=== PATIENT | male | born 1945 | race Caucasian/White ===

== ENCOUNTER 2017-04-25 14:39 | Emergency (ER) | payer OTHER ==
[2017-04-25 14:45] VITALS: BMI 22.6
--- NOTE | 2017-04-25 15:19 | DR.GENAD ---
HPI - PCP Primary Care Physician: CAROLINE - HPI Comment HPI Comment: PAIN NOTED AT LUNCH TIME AND PROGRESSIVELY GETTING WORSE. DENIES PUD OR GB PROBLEMS. NO CHEST PAIN OR DIARRHEA. NO DYSURIA. - Complaint/Symptoms Chief Complaint Doctors Comments: RIGHT SIDED ABDOMINAL PAIN FOR SEVERAL HOURS WITH FEVER. Chief Complaint:: PT C/O RLQ PAIN THAT STARTED TODAY AT LUNCH. PT DENIES N/V/D. PT DENIES FEVER, BUT HE IS RUNNING A LOW GRADE FEVER - Nurses notes reviewed Nurses Notes Review: Yes - Source History Provided: Patient - Mode of Arrival Mode of Arrival: Ambulatory - Timing Onset of Chief Complaint: 04/25/17 Came on: Suddenly - Duration Duration: Constant Duration: Hours - Severity Severity: Moderate PMH - PMH Past Medical History: Yes Past Medical History: Anxiety, Hypertension, MS Past Surgical History: No Surgical History: Other - Family History History of Family Medical Conditions: Yes Family Medical History: Hypertension - Social History Does any household member use tobacco: No Alcohol Use: DAILY Do you use any recreational Drugs:: No Lives With: Family Lives Where: Home - infectious screening In the last 2 months have you had wt loss of >10#?: NO Have you had fever, night sweats or hemotysis?: No Have you traveled outside the country in the last 6 months?: No Isolation: Standard ROS - Review of Systems Constitutional: Weakness, Fatigue, Loss of Appetite. negative: Chills, Fever Eyes: negative: Eye Pain, Discharge ENTM: No Symptoms Reported. negative: Ear Pain, Nose Discharge, Nose Congestion , Throat Pain Respiratoy: No Symptoms Reported. negative: Productive Cough, Non-Productive Cough, Short of Breath, Wheezing, Hemoptysis Cardiovascular: No Symptoms Reported Gastrointestinal/Abdominal: Abdominal Pain Genitourinary: No Symptoms Reported Neurological: No Symptoms Reported Musculoskeletal: No Symptoms Reported Integumentary: No Symptoms Reported Hematologic/Lymphatic: No Symptoms Reported Endocrine: No Symptoms Reported All Other Systems: Reviewed and Negative PE - Vital Signs Vitals: Temperature 100.3 F Pulse Rate 100 Respiratory Rate 20 Blood Pressure [Right Arm] 148/80 Blood Pressure [Left Arm] 180/90 Blood Pressure 205/95 O2 Sat by Pulse Oximetry 96 - General Limitations: No Limitations General Appearance: Alert - Head Head Exam: Normal Inspection - Eyes Eye exam: Normal Appearance - ENT ENT Exam: Normal Oropharynx External Ear Exam: Normal External Inspection TM/Canal Exam: Bilateral Normal Nose Exam: Normal Nose Exam Mouth Exam: Normal Inspection Throat Exam: Normal Inspection - Neck Neck Exam: Normal Inspection - Chest Chest Inspection: Symmetric Chest Wall Rise - Respiratory Respiratory Exam: Normal Lung Sounds Bilat Respiratory Exam: Bilateral Rhonchi, Lower Rhonchi - Cardiovascular Cardiovascular Exam: Regular Rate, Normal Rhythm, Normal Heart Sounds - Abdominal Exam Abdominal Exam: Normal Bowel Sounds, Soft, Tenderness. negative: Guarding, Rebound Abdominal Tenderness: RUQ, RLQ, Moderate - Extremities Extremities Exam: Normal Inspection - Back Back Exam: Normal Inspection - Neurologic Neurological Exam: Alert, Oriented X3 - Psychiatric Psychiatric Exam: Normal Affect, Normal Mood - Skin Skin Exam: Normal Color MDM - Differential Diagnosis Differential Diagnosis: ACUTE PANCREATITIS, ABDOMINAL PAIN Course - Treatment Treatment: SEE ORDERS. - Consultation Consultation Comments: DISCUSS PATIENT WITH DR. MONTGOMERY. HE WILL ADMIT PATIENT. - Education/Counseling Education/Counseling: Patient, Education Educated On: Diagnosis, Needs for Follow Up ROR - Labs Reviewed Laboratory Results Reviewed?: Yes Result Diagrams: 04/28/17 05:10 04/28/17 05:10 - XRAY XRAY Interpreted by: Radiologist XRAY Findings: REPORT DISCUSS WITH PATIENT. - Diagnosis Discharge Problem: Abdominal pain, Acute cholecystitis - Discharge Plan Disposition: ADMITTED INPATIENT Condition: Stable - Follow ups/Referrals - Instructions
[2017-04-25 15:38] LABS: BILIRUBIN,URINE NEGATIVE (NEGATIVE); BLOOD/HEMOGLOBIN,URINE NEGATIVE (NEGATIVE); GLUCOSE, URINE NEGATIVE (NEGATIVE); KETONES,URINE NEGATIVE (NEGATIVE); LEUKOCYTE ESTERASE ,URINE 1+ (NEGATIVE); NITRITES,URINE NEGATIVE (NEGATIVE); PROTEIN,URINE 3+ (NEGATIVE); UROBILINOGEN,URINE NORMAL (NORMAL)
[2017-04-25 15:44] LABS: APPEARANCE,URINE CLEAR (CLEAR); BACTERIA,URINE NEGATIVE /HPF (NEGATIVE); COLOR,URINE YELLOW (YELLOW); RBC,URINE 0 /HPF (NEGATIVE); SQUAMOUS EPITHELIAL CELL,UR NEGATIVE /HPF (NEGATIVE)
[2017-04-25 15:52] LABS: BASOPHILS # (AUTO) 0.1 X10^3/uL (0.0-0.1); BASOPHILS % (AUTO) 0.5 % (0.2-1.0); EOSINOPHILS # (AUTO) 0.2 x10^3/uL (0.0-0.2); EOSINOPHILS % (AUTO) 1.7 % (0.9-2.9); HEMATOCRIT 43.7 % (42.0-54.0); HEMOGLOBIN 15.1 g/dL (13.5-18.0); LYMPHOCYTES # (AUTO) 0.7 X10^3/uL (1.3-2.9); LYMPHOCYTES % (AUTO) 6.3 % (21.0-51.0); MEAN CORPUSCULAR HEMOGLOBIN 32.1 pg (27.0-34.0); MEAN CORPUSCULAR HGB CONC 34.5 g/dL (33.0-35.0); MEAN CORPUSCULAR VOLUME 93.1 fL (80.0-100.0); MEAN PLATELET VOLUME 8.5 fL (7.4-11.0); MONOCYTES % (AUTO) 8.8 % (0.0-13.0); NEUTROPHILS % (AUTO) 82.7 % (42.0-75.0); PLATELET COUNT 268 X10^3/uL (150.0-450.0); RED BLOOD COUNT 4.69 X10^6/uL (4.7-6.0); WHITE BLOOD COUNT 10.9 X10^3/uL (3.6-10.0)
[2017-04-25 16:02] LABS: ALANINE AMINOTRANSFERASE 23 Units/L (12-78); ALBUMIN 3.6 g/dL (3.4-5.0); ALKALINE PHOSPHATASE 106 Units/L (46-116); AMYLASE 44 Units/L (25-115); ASPARTATE AMINO TRANSFERASE 21 Units/L (15-37); BLOOD UREA NITROGEN 16 mg/dL (7-18); CALCIUM 8.9 mg/dL (8.5-10.1); CARBON DIOXIDE 31.5 mmol/L (21-32); CHLORIDE 100 mmol/L (98-107); COR NA(FOR HYPERGLY) 140 mmol/L (136-145); CREATININE 1.29 mg/dL (0.70-1.30); LIPASE 101 Units/L (73-393); SODIUM 139 mmol/L (136-145); TOTAL PROTEIN 7.8 g/dL (6.4-8.2); eGFR BLACK RACES > 60 (>60); eGFR NON BLACK RACES 59 (>60)
--- NOTE | 2017-04-25 16:13 | CT ---
HISTORY: Right lower quadrant pain Study: CT abdomen pelvis without contrast Comparison: 06/22/2013 Technique: Axial noncontrast images with coronal and sagittal reformats. Dose reduction procedures we re used with mA/kv adjusted for body size. The examination is limited due to the lack of intravenous and oral contrast. Findings: The lung bases are clear. The liver, spleen, adrenal glands, and pancreas are within normal limits to the limitations of an unenhanced examination. There are no opaque stones within a distended gallblad [place]. There does appear to be some pericholecystic fat stranding suggestive of inflammation. Cholecyst itis cannot be excluded. Further evaluation with gallbladder sonography is recommended. The kidneys a re unobstructed. No definite stones are identified. Vascular calcifications are present bilaterally m ore prominent on the right. Calcific atherosclerotic changes present in a nondilated abdominal aorta. No intraperitoneal or retroperitoneal lymphadenopathy of significance is identified. The appendix is normal. There are no findings suggestive of diverticulitis or colitis. Examination of the pelvis dem onstrated no evidence for pelvic masses, pelvic fluid, or pelvic lymphadenopathy. The prostate is enl arged. No bladder abnormality is identified. No lytic or blastic skeletal lesions are identified. IMPRESSION: Normal appendix Distended gallbladder with a suggestion of some pericholecystic inflammation. Acute cholecystitis is possible. Sonographic correlation is recommended. Enlarged prostate Reported By:
[2017-04-25] MEDS ORDERED: PEPCID 20 MG IV PREMIX* 20 MG/50 ML BAG IV PRN (17:26)
[2017-04-25] MEDS ORDERED: MERREM VIAL ONE (18:17)
[2017-04-25] MEDS ORDERED: NS 100 ML IV 100 ML IV ONE (18:17)
[2017-04-25] MEDS: NS 1000 ML 1,000 ML IV SCH (18:28)
[2017-04-25] MEDS: MERREM PREMIX IV 500 MG 500 MG/50 ML BAG IV SCH ×2 (18:28→21:27)
[2017-04-25] MEDS: LOPRESSOR TAB 50 MG PO SCH (20:37)
[2017-04-25] MEDS: CATAPRES TAB 0.1 MG PO SCH (20:37)
[2017-04-25] MEDS: KLONOPIN TAB 1 MG PO SCH (20:38)
--- NOTE | 2017-04-25 20:43 | US ---
HISTORY: 72-year-old male with abdominal pain. Study: Right upper quadrant abdominal ultrasound Comparison: CT of the abdomen and pelvis this date Technique: Multiple gutierrez scale and color flow Doppler images of the right upper quadrant were obtaine d. Findings: The liver is normal in echotexture and size. No focal intraparenchymal mass or intrahepatic biliary ductal dilatation can be observed. Normal color Doppler and directional flow was observed within the hepatic artery, veins and portal veins. The gallbladder fails to demonstrate evidence for cholelithia sis or layering sludge. The common bile duct is unremarkable measuring 0.5 cm. No pericholecystic f luid or gallbladder wall thickening can be observed. Positive sonographic Fong sign. The right kidney appears normal in size without focal parenchymal mass or nephrolithiasis. The right kidney measurers 9.3 cm. No hydronephrosis or perirenal fluid can be observed. The pancreatic head and body are unremarkable. The pancreatic tail is largely obscured by overlying bowel gas. IMPRESSION: 1. Positive sonographic Fong's sign without other sonographic evidence of acute cholecystitis. Antonio elation with serology is recommended. Further evaluation with nuclear scintigraphy may be beneficial as clinically warranted. 2. Otherwise unremarkable right upper quadrant abdominal ultrasound. Reported By:
[2017-04-25] MEDS ORDERED: PATIENT'S HOME MEDICATION (Metoprolol Tartrate [Lopressor Tab 100 Mg] 100 MG) PO SCH (21:00)
[2017-04-25] MEDS: MORPHINE SULFATE INJ 2 MG INJ IVP PRN (22:59)
[2017-04-25] MEDS: ZOFRAN INJ 4 MG VIAL IVP PRN (23:00)
[2017-04-26] MEDS: MORPHINE SULFATE INJ 2 MG INJ IVP PRN ×3 (05:03→23:20)
[2017-04-26] MEDS: NS 1000 ML 1,000 ML IV SCH ×2 (05:03→14:12)
[2017-04-26] MEDS: ZOFRAN INJ 4 MG VIAL IVP PRN ×3 (05:04→23:19)
[2017-04-26] MEDS ORDERED: MERREM VIAL ONE (06:08)
[2017-04-26] MEDS ORDERED: NS 100 ML IV + SPIKE MINIBAG* 100 ML IV ONE (06:08)
[2017-04-26] MEDS: MERREM VIAL 500 MG in NS 100 ML IV + SPIKE MINIBAG* 100 ML IV SCH ×3 (06:11→22:42)
[2017-04-26 06:47] LABS: BASOPHILS % (AUTO) 0.6 % (0.2-1.0); EOSINOPHILS # (AUTO) 0.2 x10^3/uL (0.0-0.2); EOSINOPHILS % (AUTO) 2.6 % (0.9-2.9); HEMATOCRIT 38.1 % (42.0-54.0); HEMOGLOBIN 13.1 g/dL (13.5-18.0); LYMPHOCYTES % (AUTO) 11.6 % (21.0-51.0); MEAN CORPUSCULAR HGB CONC 34.4 g/dL (33.0-35.0); MEAN CORPUSCULAR VOLUME 93.1 fL (80.0-100.0); MEAN PLATELET VOLUME 8.8 fL (7.4-11.0); MONOCYTES % (AUTO) 12.4 % (0.0-13.0); NEUTROPHILS % (AUTO) 72.8 % (42.0-75.0); PLATELET COUNT 223 X10^3/uL (150.0-450.0); RED BLOOD COUNT 4.09 X10^6/uL (4.7-6.0); RED CELL DISTRIBUTION WIDTH 13.8 % (11.6-16.5); WHITE BLOOD COUNT 8.2 X10^3/uL (3.6-10.0)
[2017-04-26 06:59] LABS: ALANINE AMINOTRANSFERASE 23 Units/L (12-78); ALBUMIN 2.9 g/dL (3.4-5.0); ALKALINE PHOSPHATASE 89 Units/L (46-116); AMYLASE 31 Units/L (25-115); ASPARTATE AMINO TRANSFERASE 24 Units/L (15-37); BLOOD UREA NITROGEN 15 mg/dL (7-18); CALCIUM 8.1 mg/dL (8.5-10.1); CARBON DIOXIDE 34.7 mmol/L (21-32); CHLORIDE 102 mmol/L (98-107); CREATININE 1.11 mg/dL (0.70-1.30); LIPASE 69 Units/L (73-393); SODIUM 142 mmol/L (136-145); TOTAL PROTEIN 6.4 g/dL (6.4-8.2); eGFR BLACK RACES > 60 (>60); eGFR NON BLACK RACES > 60 (>60)
[2017-04-26] MEDS ORDERED: K-RIDER 10 MEQ/NS 100 ML 10 MEQ/100 ML BAG IV PRN (08:38)
[2017-04-26] MEDS ORDERED: POTASSIUM CHL 40 MEQ/NS 0.45% 500 ML IV PRN (08:38)
[2017-04-26] MEDS ORDERED: MAG-OX TAB PO PRN (08:38)
[2017-04-26] MEDS ORDERED: POTASSIUM CHLORIDE LIQ 20 MEQ UDC PO PRN (08:38)
[2017-04-26] MEDS ORDERED: K-LYTE EFFERVESCENT PO PRN (08:38)
[2017-04-26] MEDS ORDERED: POTASSIUM CHL 60 MEQ/NS 0.45% 500 ML IV PRN (08:38)
[2017-04-26] MEDS: CATAPRES TAB 0.1 MG PO SCH ×3 (09:58→20:05)
[2017-04-26] MEDS: ZESTORETIC 20/25 MG PO SCH (09:58)
[2017-04-26] MEDS: KLONOPIN TAB 1 MG PO SCH ×3 (09:58→20:05)
[2017-04-26] MEDS: LOPRESSOR TAB 50 MG PO SCH ×3 (09:58→21:12)
--- NOTE | 2017-04-26 11:19 | PCM.PROG ---
Progress Note - Progress Note for Day of Date: 04/26/17 - Subjective Subjective: still having constant Rt side abdominal pain, no nausea or vomiting . GB sonogram positive for Fong sign but no stones . CT showed distended GB with pericystic fluid R/O cholecystitis . - Past Medical Family Social History Allergies: Allergies iodine Allergy (Verified 04/25/17 15:20) levofloxacin [From Levaquin] Allergy (Verified 04/25/17 15:20) meperidine [From Demerol] Allergy (Verified 04/25/17 15:20) Penicillins Allergy (Verified 04/25/17 15:20) - Vital Signs and I&O's Vital Signs: Temperature 97.6 F Pulse Rate [Right Radial] 74 Pulse Rate 100 Respiratory Rate 20 Blood Pressure [Right Arm] 128/67 Blood Pressure [Left Arm] 189/107 Blood Pressure 205/95 O2 Sat by Pulse Oximetry 93 Intake and Output: Intake & Output 04/23/17 04/24/17 04/25/17 04/26/17 11:59 11:59 11:59 11:59 Intake Total 636 Output Total 100 Balance 536 - Physical Exam Tenderness: RUQ (still having tenderness over the Rt side ) Speech Pattern: Clear, Appropriate - Laboratory and Diagnostics Result Diagrams: 04/26/17 05:43 04/26/17 05:43 Labs: Laboratory WBC 8.2 X10^3/uL (3.6-10.0) 04/26/17 05:43 RBC 4.09 X10^6/uL (4.7-6.0) L 04/26/17 05:43 Hgb 13.1 g/dL (13.5-18.0) L D 04/26/17 05:43 Hct 38.1 % (42.0-54.0) L 04/26/17 05:43 MCV 93.1 fL (80.0-100.0) 04/26/17 05:43 MCH 32.0 pg (27.0-34.0) 04/26/17 05:43 MCHC 34.4 g/dL (33.0-35.0) 04/26/17 05:43 RDW 13.8 % (11.6-16.5) 04/26/17 05:43 Plt Count 223 X10^3/uL (150.0-450.0) 04/26/17 05:43 MPV 8.8 fL (7.4-11.0) 04/26/17 05:43 Neut % 72.8 % (42.0-75.0) 04/26/17 05:43 Lymph % 11.6 % (21.0-51.0) L 04/26/17 05:43 [place] % 12.4 % (0.0-13.0) 04/26/17 05:43 Eos % 2.6 % (0.9-2.9) 04/26/17 05:43 Baso % 0.6 % (0.2-1.0) 04/26/17 05:43 Neut # 6.0 x10^3/uL (2.2-4.8) H 04/26/17 05:43 Lymph # 1.0 X10^3/uL (1.3-2.9) L 04/26/17 05:43 [place] # 1.0 x10^3/uL (0.3-0.8) H 04/26/17 05:43 Eos # 0.2 x10^3/uL (0.0-0.2) 04/26/17 05:43 Baso # 0.0 X10^3/uL (0.0-0.1) 04/26/17 05:43 Absolute Nucleated RBC 0.0 /100WBC 04/26/17 05:43 Sodium 142 mmol/L (136-145) 04/26/17 05:43 Corrected Sodium TNP 04/26/17 05:43 Potassium 3.0 mmol/L (3.5-5.1) L* 04/26/17 05:43 Chloride 102 mmol/L (98-107) 04/26/17 05:43 Carbon Dioxide 34.7 mmol/L (21-32) H 04/26/17 05:43 BUN 15 mg/dL (7-18) 04/26/17 05:43 Creatinine 1.11 mg/dL (0.70-1.30) 04/26/17 05:43 Est GFR (MDRD) Af Amer > 60 (>60) 04/26/17 05:43 Est GFR (MDRD) Non-Af > 60 (>60) 04/26/17 05:43 Glucose 106 mg/dL (65-99) H 04/26/17 05:43 Calcium 8.1 mg/dL (8.5-10.1) L 04/26/17 05:43 Corrected Calcium 9.0 mg/dL (8.5-10.1) 04/26/17 05:43 Magnesium 1.0 mg/dL (1.7-2.9) L 04/26/17 05:43 Total Bilirubin 0.80 mg/dL (0.2-1.0) 04/26/17 05:43 AST 24 Units/L (15-37) 04/26/17 05:43 ALT 23 Units/L (12-78) 04/26/17 05:43 Alkaline Phosphatase 89 Units/L (46-116) 04/26/17 05:43 Total Protein 6.4 g/dL (6.4-8.2) 04/26/17 05:43 Albumin 2.9 g/dL (3.4-5.0) L 04/26/17 05:43 Globulin 3.5 g/dL (2.5-4.5) 04/26/17 05:43 Albumin/Globulin Ratio 0.8 Ratio (1.1-2.1) L 04/26/17 05:43 Amylase 31 Units/L (25-115) 04/26/17 05:43 Lipase 69 Units/L (73-393) L 04/26/17 05:43 Specimen Type Clean catch urine 04/25/17 15:32 Urine Color Yellow (YELLOW) 04/25/17 15:32 Urine Appearance Clear (CLEAR) 04/25/17 15:32 Urine pH 5.0 (5.0 - 8.0) 04/25/17 15:32 Ur Specific [place] 1.010 (1.000-1.030) 04/25/17 15:32 Urine Protein 3+ (NEGATIVE) 04/25/17 15:32 Urine Glucose (UA) Negative (NEGATIVE) 04/25/17 15:32 Urine Ketones Negative (NEGATIVE) 04/25/17 15:32 Urine Occult Blood Negative (NEGATIVE) 04/25/17 15:32 Urine Nitrite Negative (NEGATIVE) 04/25/17 15:32 Urine Bilirubin Negative (NEGATIVE) 04/25/17 15:32 Urine Urobilinogen Normal (NORMAL) 04/25/17 15:32 Ur Leukocyte Esterase 1+ (NEGATIVE) 04/25/17 15:32 Urine RBC 0 /HPF (NEGATIVE) 04/25/17 15:32 Urine WBC 0-3 /HPF (NEGATIVE) 04/25/17 15:32 Ur Squamous Epith Cells Negative /HPF (NEGATIVE) 04/25/17 15:32 Urine Bacteria Negative /HPF (NEGATIVE) 04/25/17 15:32 Ur Culture Indicated? No/not indicated 04/25/17 15:32 - Plan (1) Cholecystitis without calculus Status: Acute Plan: for biliary scan with CCK test . advance diet .. K supplement .
[2017-04-26] MEDS: MAGNESIUM SULFATE 1 GM/100 mL PREMIX 1 GM/100 ML BAG IV PRN ×4 (19:07→21:59)
[2017-04-27] MEDS: MAGNESIUM SULFATE 1 GM/100 mL PREMIX 1 GM/100 ML BAG IV PRN ×2 (00:09→01:08)
[2017-04-27] MEDS: NS 1000 ML 1,000 ML IV SCH ×3 (01:08→19:58)
[2017-04-27] MEDS: MERREM VIAL 500 MG in NS 100 ML IV + SPIKE MINIBAG* 100 ML IV SCH ×3 (05:20→21:17)
[2017-04-27 06:11] LABS: BLOOD UREA NITROGEN 9 mg/dL (7-18); CALCIUM 8.8 mg/dL (8.5-10.1); CARBON DIOXIDE 31.7 mmol/L (21-32); CHLORIDE 100 mmol/L (98-107); COR NA(FOR HYPERGLY) 139 mmol/L (136-145); CREATININE 1.11 mg/dL (0.70-1.30); MAGNESIUM 2.6 mg/dL (1.7-2.9); SODIUM 138 mmol/L (136-145); eGFR BLACK RACES > 60 (>60); eGFR NON BLACK RACES > 60 (>60)
[2017-04-27 06:21] LABS: BASOPHILS # (AUTO) 0.1 X10^3/uL (0.0-0.1); BASOPHILS % (AUTO) 0.8 % (0.2-1.0); EOSINOPHILS # (AUTO) 0.2 x10^3/uL (0.0-0.2); EOSINOPHILS % (AUTO) 2.5 % (0.9-2.9); HEMATOCRIT 41.7 % (42.0-54.0); HEMOGLOBIN 14.4 g/dL (13.5-18.0); LYMPHOCYTES # (AUTO) 0.7 X10^3/uL (1.3-2.9); LYMPHOCYTES % (AUTO) 7.3 % (21.0-51.0); MEAN CORPUSCULAR HEMOGLOBIN 32.2 pg (27.0-34.0); MEAN CORPUSCULAR HGB CONC 34.6 g/dL (33.0-35.0); MEAN CORPUSCULAR VOLUME 93.2 fL (80.0-100.0); MEAN PLATELET VOLUME 9.1 fL (7.4-11.0); MONOCYTES # (AUTO) 0.8 x10^3/uL (0.3-0.8); MONOCYTES % (AUTO) 7.7 % (0.0-13.0); NEUTROPHILS # (AUTO) 8.1 x10^3/uL (2.2-4.8); NEUTROPHILS % (AUTO) 81.7 % (42.0-75.0); PLATELET COUNT 228 X10^3/uL (150.0-450.0); RED BLOOD COUNT 4.47 X10^6/uL (4.7-6.0); RED CELL DISTRIBUTION WIDTH 13.6 % (11.6-16.5); WHITE BLOOD COUNT 9.9 X10^3/uL (3.6-10.0)
[2017-04-27] MEDS ORDERED: PHENOBARBITAL SODIUM INJ 65 MG VIAL IM PRN (07:19)
[2017-04-27 07:22] LABS: PLATELET MORPHOLOGY COMMENT NORMAL (NORMAL)
[2017-04-27] MEDS: KLONOPIN TAB 1 MG PO SCH ×3 (08:45→21:16)
[2017-04-27] MEDS: CATAPRES TAB 0.1 MG PO SCH ×2 (08:45→21:16)
[2017-04-27] MEDS: ZESTORETIC 20/25 MG PO SCH (08:46)
[2017-04-27] MEDS: LOPRESSOR TAB 50 MG PO SCH ×2 (08:46→21:16)
[2017-04-27] MEDS ORDERED: LIBRIUM PO NR (10:48)
--- NOTE | 2017-04-27 11:00 | RAD ---
History: Abdominal pain Study: Chest single view Findings: Single PA view of the chest is compared to a study 04/01/2013. Again no evident cardiopulmo nary or bony thoracic abnormality is identified. Impression: Normal chest. Reported By:
[2017-04-27] MEDS ORDERED: ATIVAN INJ 2 MG VIAL IVP ONE ×2 (11:25→12:51)
[2017-04-27] MEDS ORDERED: BENADRYL INJ 50 MG VIAL IVP ONE (12:48)
[2017-04-27] MEDS ORDERED: HALDOL INJ IVP ONE (12:49)
--- NOTE | 2017-04-27 14:34 | PCM.PROG ---
Progress Note - Progress Note for Day of Date: 04/27/17 - Subjective Subjective: GB sonogram positive for Fong sign but no stones . CT showed distended GB with pericystic fluid R/O cholecystitis . bliary scan could not be completed pt was not cooperative .. denies abdominal pain , no nausea , no vomiting .. pt was confused and very restless today .. lab work was normal . - Past Medical Family Social History Allergies: Allergies iodine Allergy (Verified 04/25/17 15:20) levofloxacin [From Levaquin] Allergy (Verified 04/25/17 15:20) meperidine [From Demerol] Allergy (Verified 04/25/17 15:20) Penicillins Allergy (Verified 04/25/17 15:20) - Vital Signs and I&O's Vital Signs: Temperature 98.2 F Pulse Rate [Right Radial] 113 Pulse Rate 100 Respiratory Rate 20 Blood Pressure [Right Arm] 170/100 Blood Pressure [Left Arm] 201/98 Blood Pressure 205/95 O2 Sat by Pulse Oximetry 99 Intake and Output: Intake & Output 04/25/17 04/26/17 04/27/17 04/28/17 11:59 11:59 11:59 11:59 Intake Total 636 2047 Output Total 100 Balance 536 2047 - Physical Exam Auscultation: Bowel Sounds: Other (mild rt side tenderness , soft abdomen , BS + ) Tenderness: RUQ (still having tenderness over the Rt side ) Speech Pattern: Clear, Appropriate - Laboratory and Diagnostics Result Diagrams: 04/27/17 05:10 04/27/17 05:10 Labs: Laboratory WBC 9.9 X10^3/uL (3.6-10.0) 04/27/17 05:10 RBC 4.47 X10^6/uL (4.7-6.0) L 04/27/17 05:10 Hgb 14.4 g/dL (13.5-18.0) 04/27/17 05:10 Hct 41.7 % (42.0-54.0) L 04/27/17 05:10 MCV 93.2 fL (80.0-100.0) 04/27/17 05:10 MCH 32.2 pg (27.0-34.0) 04/27/17 05:10 MCHC 34.6 g/dL (33.0-35.0) 04/27/17 05:10 RDW 13.6 % (11.6-16.5) 04/27/17 05:10 Plt Count 228 X10^3/uL (150.0-450.0) 04/27/17 05:10 Plt Count Comment Adequate (ADEQUATE) 04/27/17 05:10 MPV 9.1 fL (7.4-11.0) 04/27/17 05:10 Neut % 81.7 % (42.0-75.0) H 04/27/17 05:10 Lymph % 7.3 % (21.0-51.0) L 04/27/17 05:10 [place] % 7.7 % (0.0-13.0) 04/27/17 05:10 Eos % 2.5 % (0.9-2.9) 04/27/17 05:10 Baso % 0.8 % (0.2-1.0) 04/27/17 05:10 Neut # 8.1 x10^3/uL (2.2-4.8) H 04/27/17 05:10 Lymph # 0.7 X10^3/uL (1.3-2.9) L 04/27/17 05:10 [place] # 0.8 x10^3/uL (0.3-0.8) 04/27/17 05:10 Eos # 0.2 x10^3/uL (0.0-0.2) 04/27/17 05:10 Baso # 0.1 X10^3/uL (0.0-0.1) 04/27/17 05:10 Absolute Nucleated RBC 0.1 /100WBC 04/27/17 05:10 Total Counted Cancelled 04/27/17 05:10 Neutrophils % (Manual) Cancelled 04/27/17 05:10 Band Neutrophils % Cancelled 04/27/17 05:10 Lymphocytes % (Manual) Cancelled 04/27/17 05:10 Monocytes % (Manual) Cancelled 04/27/17 05:10 Eosinophils % (Manual) Cancelled 04/27/17 05:10 Basophils % (Manual) Cancelled 04/27/17 05:10 Metamyelocytes % Cancelled 04/27/17 05:10 Myelocytes % Cancelled 04/27/17 05:10 Promyelocytes % Cancelled 04/27/17 05:10 Plt Morphology Comment Normal (NORMAL) 04/27/17 05:10 RBC Morphology Normal (NORMAL) 04/27/17 05:10 Sodium 138 mmol/L (136-145) 04/27/17 05:10 Corrected Sodium 139 mmol/L (136-145) 04/27/17 05:10 Potassium 3.5 mmol/L (3.5-5.1) 04/27/17 05:10 Chloride 100 mmol/L (98-107) 04/27/17 05:10 Carbon Dioxide 31.7 mmol/L (21-32) 04/27/17 05:10 BUN 9 mg/dL (7-18) 04/27/17 05:10 Creatinine 1.11 mg/dL (0.70-1.30) 04/27/17 05:10 Est GFR (MDRD) Af Amer > 60 (>60) 04/27/17 05:10 Est GFR (MDRD) Non-Af > 60 (>60) 04/27/17 05:10 Glucose 139 mg/dL (65-99) H 04/27/17 05:10 Calcium 8.8 mg/dL (8.5-10.1) 04/27/17 05:10 Corrected Calcium 9.0 mg/dL (8.5-10.1) 04/26/17 05:43 Magnesium 2.6 mg/dL (1.7-2.9) 04/27/17 05:10 Total Bilirubin 0.80 mg/dL (0.2-1.0) 04/26/17 05:43 AST 24 Units/L (15-37) 04/26/17 05:43 ALT 23 Units/L (12-78) 04/26/17 05:43 Alkaline Phosphatase 89 Units/L (46-116) 04/26/17 05:43 Total Protein 6.4 g/dL (6.4-8.2) 04/26/17 05:43 Albumin 2.9 g/dL (3.4-5.0) L 04/26/17 05:43 Globulin 3.5 g/dL (2.5-4.5) 04/26/17 05:43 Albumin/Globulin Ratio 0.8 Ratio (1.1-2.1) L 04/26/17 05:43 Amylase 31 Units/L (25-115) 04/26/17 05:43 Lipase 69 Units/L (73-393) L 04/26/17 05:43 Specimen Type Clean catch urine 04/25/17 15:32 Urine Color Yellow (YELLOW) 04/25/17 15:32 Urine Appearance Clear (CLEAR) 04/25/17 15:32 Urine pH 5.0 (5.0 - 8.0) 04/25/17 15:32 Ur Specific [place] 1.010 (1.000-1.030) 04/25/17 15:32 Urine Protein 3+ (NEGATIVE) 04/25/17 15:32 Urine Glucose (UA) Negative (NEGATIVE) 04/25/17 15:32 Urine Ketones Negative (NEGATIVE) 04/25/17 15:32 Urine Occult Blood Negative (NEGATIVE) 04/25/17 15:32 Urine Nitrite Negative (NEGATIVE) 04/25/17 15:32 Urine Bilirubin Negative (NEGATIVE) 04/25/17 15:32 Urine Urobilinogen Normal (NORMAL) 04/25/17 15:32 Ur Leukocyte Esterase 1+ (NEGATIVE) 04/25/17 15:32 Urine RBC 0 /HPF (NEGATIVE) 04/25/17 15:32 Urine WBC 0-3 /HPF (NEGATIVE) 04/25/17 15:32 Ur Squamous Epith Cells Negative /HPF (NEGATIVE) 04/25/17 15:32 Urine Bacteria Negative /HPF (NEGATIVE) 04/25/17 15:32 Ur Culture Indicated? No/not indicated 04/25/17 15:32 - Plan (1) Cholecystitis without calculus Status: Acute Plan: for biliary scan with CCK test . advance diet .. K supplement . (2) Alcohol withdrawal Status: Acute Plan: from surgical point of veiw Pt could be discharged . needs future GI endoscopy. will follow with you as needed .
[2017-04-27] MEDS: LIBRIUM PO SCH ×2 (16:58→21:16)
[2017-04-27] MEDS ORDERED: VISTARIL PO PRN (18:46)
[2017-04-27] MEDS: MORPHINE SULFATE INJ 2 MG INJ IVP PRN (22:55)
[2017-04-28] MEDS: MORPHINE SULFATE INJ 2 MG INJ IVP PRN (05:25)
[2017-04-28] MEDS: MERREM VIAL 500 MG in NS 100 ML IV + SPIKE MINIBAG* 100 ML IV SCH (05:28)
[2017-04-28] MEDS: NS 1000 ML 1,000 ML IV SCH (05:28)
[2017-04-28 06:11] LABS: BASOPHILS % (AUTO) 0.6 % (0.2-1.0); EOSINOPHILS # (AUTO) 0.2 x10^3/uL (0.0-0.2); EOSINOPHILS % (AUTO) 3.1 % (0.9-2.9); HEMATOCRIT 41.3 % (42.0-54.0); HEMOGLOBIN 14.1 g/dL (13.5-18.0); LYMPHOCYTES # (AUTO) 1.1 X10^3/uL (1.3-2.9); LYMPHOCYTES % (AUTO) 13.8 % (21.0-51.0); MEAN CORPUSCULAR HEMOGLOBIN 31.6 pg (27.0-34.0); MEAN CORPUSCULAR HGB CONC 34.1 g/dL (33.0-35.0); MEAN CORPUSCULAR VOLUME 92.5 fL (80.0-100.0); MEAN PLATELET VOLUME 9.1 fL (7.4-11.0); MONOCYTES % (AUTO) 12.5 % (0.0-13.0); NEUTROPHILS # (AUTO) 5.7 x10^3/uL (2.2-4.8); PLATELET COUNT 268 X10^3/uL (150.0-450.0); RED BLOOD COUNT 4.46 X10^6/uL (4.7-6.0); RED CELL DISTRIBUTION WIDTH 13.8 % (11.6-16.5); WHITE BLOOD COUNT 8.1 X10^3/uL (3.6-10.0)
[2017-04-28 06:27] LABS: ALANINE AMINOTRANSFERASE 23 Units/L (12-78); ALBUMIN 3.5 g/dL (3.4-5.0); ALKALINE PHOSPHATASE 89 Units/L (46-116); ASPARTATE AMINO TRANSFERASE 33 Units/L (15-37); BLOOD UREA NITROGEN 7 mg/dL (7-18); CALCIUM 9.4 mg/dL (8.5-10.1); CARBON DIOXIDE 30.9 mmol/L (21-32); CHLORIDE 98 mmol/L (98-107); COR NA(FOR HYPERGLY) 140 mmol/L (136-145); CREATININE 1.21 mg/dL (0.70-1.30); SODIUM 140 mmol/L (136-145); TOTAL PROTEIN 7.6 g/dL (6.4-8.2); eGFR BLACK RACES > 60 (>60); eGFR NON BLACK RACES > 60 (>60)
[2017-04-28] MEDS: ZESTORETIC 20/25 MG PO SCH (09:09)
[2017-04-28] MEDS: LOPRESSOR TAB 50 MG PO SCH (09:10)
[2017-04-28] MEDS: KLONOPIN TAB 1 MG PO SCH (09:10)
[2017-04-28] MEDS: CATAPRES TAB 0.1 MG PO SCH (09:10)
[2017-04-28] MEDS: LIBRIUM PO SCH (09:10)
[2017-04-28 09:20] VITALS: BP 194/110
== END 2017-04-28 11:00 | disposition home or self-care (01) ==
LOC: ER 14:54 → MED/SURG 17:24
PROVIDERS: ADMIT Internal Medicine; ATTEND Internal Medicine
DX: K81.0 Acute cholecystitis (principal); I10 Essential (primary) hypertension; R10.84 Generalized abdominal pain; E11.65 Type 2 diabetes mellitus with hyperglycemia; F41.8 Other specified anxiety disorders; N40.0 Benign prostatic hyperplasia without lower urinary tract symptoms; F10.239 Alcohol dependence with withdrawal, unspecified; E87.6 Hypokalemia
CPT/HCPCS: 36415; 71045; 74176; 76705; 80048; 80053; 81001; 82150; 83690; 83735; 85025; 93005; 93010; 96365; 96374; 99283; 99284; A4222; A9537; Q0177; G0378; J1200; J1630; J2060; J2185; J2270; J2405; J2560